=== PATIENT | male | born 1950 | race Caucasian/White ===

== ENCOUNTER 2021-02-17 21:20 | Emergency (ER) | payer MEDICARE, OTHER, SELFPAY ==
[2021-02-17 21:26] VITALS: BP 119/65; PULSE 80; RESP 18; TEMP 36.6; O2SAT 93
[2021-02-17 22:22] LABS: Prothrombin Time 10.8 SECONDS (10.1-12.7)
[2021-02-17 22:26] LABS: Add Manual Diff / Slide Review NO; Alanine Aminotransferase 30 IU/L (<50); Albumin 3.8 g/dL (3.5-5.0); Albumin Globulin Ratio 1.3 (1.0-2.8); Alkaline Phosphatase 66 U/L (38-126); Aspartate Aminotransferase 34 IU/L (17-59); BUN Creatinine Ratio 28.1 (6-22); Basophils Absolute Auto 100 /uL (0-100); Basophils Percent Auto 0.6 % (0-2); Bilirubin Total 0.4 mg/dL (0.2-1.3); Blood Urea Nitrogen 25 mg/dL (9-20); Calcium 9.8 mg/dL (8.4-10.2); Carbon Dioxide 33 mmol/L (22-32); Chloride 97 mmol/L (98-107); Eosinophils Absolute Auto 100 /uL (0-450); Eosinophils Percent Auto 1.3 % (2-4); Estimated Glomerular Filt Rate > 60.0 mL/min (>60); Glucose 166 mg/dL (80-110); HEMOLYSIS < 15 (0-50); Hematocrit 40.4 % (41-53); Hemoglobin 13.1 g/dL (13.5-17.5); Lipase 124 U/L (23-300); Lymphocytes Absolute Auto 500 /uL (1100-4500); Lymphocytes Percent Auto 4.9 % (25-40); Mean Corpuscular HGB Conc 32.4 % (30-36); Mean Corpuscular Hemoglobin 28.2 PG (26-34); Mean Corpuscular Volume 86.9 fL (80-100); Monocytes Absolute Auto 700 /uL (0-900); Monocytes Percent Auto 6.7 % (3-14); Neutrophils Absolute Auto 8600 /uL (1500-7000); Neutrophils Percent Auto 86.5 % (50-75); Platelet Count 268 X10^3/uL (150-400); Potassium 4.6 mmol/L (3.4-5.1); Red Blood Cell Count 4.65 X10^6/uL (4.5-5.9); Red Cell Distribution Width 16.4 % (11.6-14.8); Sodium 135 mmol/L (137-145); Total Protein 6.8 g/dL (6.3-8.2); White Blood Cell Count 9.9 X10^3/uL (4.5-11.0)
[2021-02-17 22:37] LABS: Troponin I < 0.012 ng/mL (0.01-0.034)
[2021-02-17 23:07] LABS: PTT Partial Thromboplastin Tim 29 SECONDS (26.4-36.2)
--- NOTE | 2021-02-18 01:56 | ED.RECABL ---
HPI - Recheck/Abnormal Lab/Rx General Chief Complaint: Recheck/Abnormal Lab/Rx Stated Complaint: throat ca, failure to thrive Time Seen by Provider: 02/18/21 01:54 Source: patient and family Mode of arrival: Wheelchair History of Present Illness HPI narrative: 71-year-old gentleman with a history of head and neck squamous cell cancer in the late for which he had max dose radiation therapy and surgical revision. He was cancer free for approximately 15 years recently had recurrent symptoms and for the last 3 years has been having throat pain, intermittent dizziness and nausea. He was treated with immune therapy for his recurrent cancer and from that developed bullous pemphigus. He was on high dose, up to 80 mg daily, of prednisone to treat this and is now weaning off the prednisone as do pick sent IM every 2 weeks seems to be helping. Over the last number of weeks he has been increasingly weak complaining of pain in the left side of his jaw and throat, worsening dizzy miss and lightheadedness. He has been seen by his ear nose and throat physician who referred him to the [facility] for additional scoping that took place yesterday. Apparently he and his did not feel like they had adequate time with the physician and is somewhat frustrated without recent interaction and both are significantly fatigued from the travel in the frustration. Patient is unable to swallow and uses feeding tube. He has his liquid nutrients delivered by [facility] and is supposed to have 7 ?meals? a day. He does frequently bland food rather than use the liquid nutrient. Over the last week he has been feeding himself less and allowing himself less water because he simply has not felt well. He reports that with the volume of food and then and equal volume of water he feels bloated. His notes that he will sleep for the vast majority of the day getting up only to take occasional Tylenol for pain and intermittently I feed himself via feeding tube. He continues to complain of pain on the left side of his face. He has successfully use Tylenol was recently given tramadol but was concerned that that would worsen his dermatologic condition and found that the 1st dose he took was not very effective. He describes no cough unless he has swallowed too much saliva or any liquids. No fevers no chills no diarrhea. No complaints of dysuria or flank pain. Related Data Home Medications Medication Instructions Recorded Confirmed atorvastatin [Lipitor] 20 mg PO Q DAY #0 04/01/17 04/05/18 levothyroxine [Synthroid] 125 mg PO Q DAY #0 04/01/17 04/05/18 Previous Rx's Medication Instructions Recorded 60cc syringe catheter tip #2 each 04/05/18 miscellaneous medical supply #1 each 04/05/18 food supplemt, lactose-reduced 5 each FEEDING TUBE .qd #150 dose 04/19/18 omeprazole magnesium 2.5 mg oral 20 mg PO BID #60 each 11/16/18 suspension,delayed release amoxicillin-pot clavulanate 1 tab PO BID #14 tab 02/18/21 [Augmentin XR] Allergies Allergy/AdvReac Type Severity Reaction Status Date / Time codeine [CODEINE] Allergy Unknown RASH Verified 11/16/18 13:13 Review of Systems Review of Systems Narrative: Remainder of complete review of systems is otherwise unremarkable except for that included in the HPI. Patient History Medical History (Updated 02/18/21 @ 04:37 by Mary Higgins MD) Dysphagia Feeding by G-tube Feeding tube dysfunction Head and neck cancer History of radiation to head and neck region Surgical History Status post radical dissection of neck Family History Mother Cancer Sister Cancer Social History marital status: household members: spouse caregiver/support person: Yes Exam Narrative Exam Narrative: General: Chronically ill-appearing but in no acute distress. HEENT: Hoarse voice secondary to his radiation treatment and head and neck cancer. Dry mucous membranes, normal sclera with reactive pupils. Has some minor swelling at the left angle of his jaw with a single submandibular lymph node that is tender to touch. Oral mucosa is dry with a large number of secretions as well. Overall poor dental hygiene but no obvious pointing abscess or fractured tooth Neck: Post radical neck dissection, well-healed Respiratory: Lungs are clear to auscultation, scattered occasional wheeze but no rales no rhonchi. Full and symmetrical air movement Cardiac: Regular rate and rhythm no murmurs no bruits Abdomen: Soft, nontender, good bowel tones, no flank pain Skin: Warm and dry, quite thin. He has multiple small areas of healing bowl eye and an area of excoriation around his feeding tube site that does not appear to be acutely infected Neurologic: Grossly neurologically intact with no obvious asymmetries or abnormalities aside from that related to the radical neck dissection Extremities: No trauma, well perfused Psych: Cooperative, poor overall insight Initial Vital Signs Initial Vital Signs: Vital Signs Temperature 97.8 F 02/17/21 21:26 Pulse Rate 80 02/17/21 21:26 Respiratory Rate 18 02/17/21 21:26 Blood Pressure 119/65 02/17/21 21:26 Pulse Oximetry 93 02/17/21 21:26 Course Orders Ordered: ED Orders 02/17/21 21:40 Complete Blood Count AUTO DIFF Stat Comprehensive Metabolic Panel Stat Lipase Stat Partial Thromboplastin Time Stat Prothrombin Time INR Stat Trop I [Troponin I] Stat 02/18/21 02:17 Urinalysis and Microscopic Stat Hydromorphone HCl (Hydromorphone 0.5 Mg Inj) 0.5 mg IV Q15MIN PRN PRN Reason: Pain, Last Admin: 02/18/21 03:07 Dose: 0.5 mg Documented by: CAMRON Discontinued Medications Hydrocortisone (Hydrocortisone 100 Mg/2 Ml Vial) 100 mg IV NOW ONE Stop: 02/18/21 03:02 Last Admin: 02/18/21 03:10 Dose: 100 mg Documented by: CAMRON Sodium Chloride (Normal Saline 0.9%) 1,000 mls @ 1,000 mls/hr IV BOLUS ONE Stop: 02/18/21 04:00 Last Admin: 02/18/21 03:09 Dose: 1,000 mls/hr Documented by: CAMRON Ceftriaxone Sodium/Dextrose (Rocephin) 1 gm in 50 mls @ 100 mls/hr IV NOW ONE Stop: 02/18/21 03:31 Last Infusion: 02/18/21 03:52 Dose: 0 mls/hr Documented by: Admin: 02/18/21 03:09 Dose: 100 mls/hr Documented by: CAMRON Vital Signs Vital signs: Vital Signs - 8 hr 02/17/21 21:26 Temperature 97.8 F Pulse Rate 80 Respiratory Rate 18 Blood Pressure 119/65 Pulse Oximetry 93 MDM - Recheck/Abnormal Lab/Rx Medical Records Attestation: I reviewed the patient's medical records. Lab Data Attestation: I reviewed the patient's lab results. Result diagrams: 02/17/21 21:40 02/17/21 21:40 Labs: Lab Results 02/17/21 02/17/21 02/17/21 Range/Units 21:40 21:40 21:40 WBC 9.9 (4.5-11.0) X10^3/uL RBC 4.65 (4.5-5.9) X10^6/uL Hgb 13.1 L (13.5-17.5) g/dL Hct 40.4 L (41-53) % MCV 86.9 (80-100) fL MCH 28.2 (26-34) PG MCHC 32.4 (30-36) % RDW 16.4 H (11.6-14.8) % Plt Count 268 (150-400) X10^3/uL Neut % (Auto) 86.5 H (50-75) % Lymph % (Auto) 4.9 L (25-40) % [place] % (Auto) 6.7 (3-14) % Eos % (Auto) 1.3 L (2-4) % Baso % (Auto) 0.6 (0-2) % Neut # (Auto) 8600 H (1893-7628) /uL Lymph # (Auto) 500 L (9424-1572) /uL [place] # (Auto) 700 (0-900) /uL Eos # (Auto) 100 (0-450) /uL Baso # (Auto) 100 (0-100) /uL PT 10.8 (10.1-12.7) SECONDS INR 1.0 (0.9-1.3) APTT 29 (26.4-36.2) SECONDS Sodium 135 L (137-145) mmol/L Potassium 4.6 (3.4-5.1) mmol/L Chloride 97 L (98-107) mmol/L Carbon Dioxide 33 H (22-32) mmol/L BUN 25 H (9-20) mg/dL Creatinine 0.89 (0.66-1.25) mg/dL Estimated GFR > 60.0 (>60) mL/min BUN/Creatinine Ratio 28.1 H (6-22) Glucose 166 H (80-110) mg/dL Calcium 9.8 (8.4-10.2) mg/dL Total Bilirubin 0.4 (0.2-1.3) mg/dL AST 34 (17-59) IU/L ALT 30 (<50) IU/L Alkaline Phosphatase 66 (38-126) U/L Troponin I (0.01-0.034) ng/mL Total Protein 6.8 (6.3-8.2) g/dL Albumin 3.8 (3.5-5.0) g/dL Globulin 3.0 (1.7-4.1) g/dL Albumin/Globulin Ratio 1.3 (1.0-2.8) Lipase 124 (23-300) U/L Urine Color Urine Appearance Urine pH (4.5-8.0) Ur Specific [place] (1.000-1.035) Urine Protein (Negative) Urine Glucose (UA) (Negative) g/dL Urine Ketones (NEGATIVE) Urine Occult Blood (Negative) Urine Nitrate (Negative) Urine Bilirubin (NEGATIVE) Urine Urobilinogen (0.2) E.U./dL Ur Leukocyte Esterase (NEGATIVE) Urine RBC (0-5/HPF) Urine WBC (0-5/HPF) Urine Bacteria (None) Ur Culture Indicated? 02/17/21 02/18/21 Range/Units 21:40 02:17 WBC (4.5-11.0) X10^3/uL RBC (4.5-5.9) X10^6/uL Hgb (13.5-17.5) g/dL Hct (41-53) % MCV (80-100) fL MCH (26-34) PG MCHC (30-36) % RDW (11.6-14.8) % Plt Count (150-400) X10^3/uL Neut % (Auto) (50-75) % Lymph % (Auto) (25-40) % [place] % (Auto) (3-14) % Eos % (Auto) (2-4) % Baso % (Auto) (0-2) % Neut # (Auto) (6074-5607) /uL Lymph # (Auto) (0799-9423) /uL [place] # (Auto) (0-900) /uL Eos # (Auto) (0-450) /uL Baso # (Auto) (0-100) /uL PT (10.1-12.7) SECONDS INR (0.9-1.3) APTT (26.4-36.2) SECONDS Sodium (137-145) mmol/L Potassium (3.4-5.1) mmol/L Chloride (98-107) mmol/L Carbon Dioxide (22-32) mmol/L BUN (9-20) mg/dL Creatinine (0.66-1.25) mg/dL Estimated GFR (>60) mL/min BUN/Creatinine Ratio (6-22) Glucose (80-110) mg/dL Calcium (8.4-10.2) mg/dL Total Bilirubin (0.2-1.3) mg/dL AST (17-59) IU/L ALT (<50) IU/L Alkaline Phosphatase (38-126) U/L Troponin I < 0.012 (0.01-0.034) ng/mL Total Protein (6.3-8.2) g/dL Albumin (3.5-5.0) g/dL Globulin (1.7-4.1) g/dL Albumin/Globulin Ratio (1.0-2.8) Lipase (23-300) U/L Urine Color Yellow Urine Appearance Clear Urine pH 6.5 (4.5-8.0) Ur Specific [place] 1.025 (1.000-1.035) Urine Protein Trace H (Negative) Urine Glucose (UA) 1+ H (Negative) g/dL Urine Ketones Negative (NEGATIVE) Urine Occult Blood Negative (Negative) Urine Nitrate Negative (Negative) Urine Bilirubin Negative (NEGATIVE) Urine Urobilinogen 0.2 (0.2) E.U./dL Ur Leukocyte Esterase Negative (NEGATIVE) Urine RBC None seen (0-5/HPF) Urine WBC None seen (0-5/HPF) Urine Bacteria None seen (None) Ur Culture Indicated? Cult not indicated MDM Narrative Medical decision making narrative: 71-year-old gentleman with complex medical history with increasing left jaw pain in the setting of his head neck cancer, increasing weakness and fatigue so he is not using appropriate volumes of liquid nutrition normal water. Recent long day at the [facility] with frustrating interactions with physicians and he in his finally at [facility] end in trying to find answers and help. Does seem to have a number of issues with the possibility of a dental infection causing the left-sided jaw pain concurrent with his cancers. He did have head neck and chest CTs at the [facility] yesterday as well as some type of ENT scoping down his throat all of which were reportedly negative for recurrent disease. I am concerned that this needs to be further clarified have encouraged him to follow-up with Dr. Ospina. In the meantime, he does appear to have thrush and is only intermittently using the nystatin swish and swallow he has available to him. I am concerned that he does have a dental infection and will continue his antibiotics augmented by a dose of ceftriaxone in the emergency department. He clearly is dehydrated and given 2 L of fluid feeling significantly better after that. Given his chronic prednisone use he is also given a stress dose of hydrocortisone. Regarding pain control we had a long discussion regarding options and at this point he is willing to consider trying narcotics. He found that the tramadol was not effective and he was concerned with dermatologic side effects given his already complex bullous pemphigoid. Half a dose of Dilaudid dramatically helped relieve his overall pain. We talked about the use of Percocet and Tylenol in combination. At this time there is no evidence of sepsis, with rehydration and hydrocortisone he he is feeling significantly better. I believe he is safe for discharge home and he will follow-up with his oncology and ENT providers. Discharge Plan Departure Patient Disposition: Home Clinical Impression: Acute dehydration, Dental infection, Candidiasis of mouth, Current chronic use of systemic steroids, Feeding by G-tube Instructions: DI for Dehydration -- Adult Activity Restrictions/Additional Instructions: thank you for coming in today. It sounds like you have had a very frustrating experience recently, all made more difficult when you are hurting and not feeling well. there are a number of issues that we discussed 1. You are dehydrated. You need to be doing tube feeds and water multiple times a day even when your tired are not feeling well. If you do not fuel your body appropriately and make sure you are well hydrated, you are going to be tired and lethargic. 2. I am concerned that the pain that you have at the angle of the jaw on the left side with the single swollen lymph node is because of a dental infection. I have given you a dose of ceftriaxone in the emergency department and will prescribe an additional 7 days of Augmentin. This pain may be cancer related as well. You have had an evaluation and do not feel that you understood the results completely. I would recommend that you follow-up with Dr. Ospina so that he can make sure you have all of the information that you need and that you are improving 3. With your chronic steroids I believe part of your mouth and throat pain is due to thrush/yeast in the mouth. Please continue to use the nystatin swish and swallow that you have available. Another thing that can happen with chronic steroid use is adrenal suppression. I have given you a stress dose of IV hydrocortisone in the emergency department to help compensate for this with your acute issues today 4. For pain control, I fully appreciate that you want to avoid the side effects( of narcotics addiction, constipation, feeling drugged) however pain severe enough that your unwilling to get up out of bed can be more appropriately treated so you can fully participate in your life. For medium pain use 2 Tylenol, for severe pain use 1 Percocet and 1 Tylenol together. Any time you do use of Percocet you need to add more water to your daily routine to avoid constipation I hope that you are feeling better soon Prescriptions: New amoxicillin-pot clavulanate [Augmentin XR] 1,000-62.5 mg tablet extended release 12 hr 1 tab PO BID Qty: 14 RF: 0 No Action atorvastatin [Lipitor] 20 mg Tablet 20 mg PO Q DAY Qty: 0 RF: 0 levothyroxine [Synthroid] 112 mcg Tablet 125 mg PO Q DAY Qty: 0 RF: 0 food supplemt, lactose-reduced [Ensure High Protein] liquid 5 each Feeding Tube .qd Qty: 150 RF: 3 omeprazole magnesium 2.5 mg susp,delayed release for recon 20 mg PO BID Qty: 60 RF: 6 (DME) 60cc syringe catheter tip Qty: 2 RF: 5 (DME) miscellaneous medical supply [Feeding Tube Attachment Device] misc See Dose Instructions .ROUTE .MEDSUPPLY Qty: 1 RF: 0 Referrals: Jonelle Camara MD [Primary Care Provider] -
[2021-02-18 02:19] LABS: Bacteria Urine None Seen; RBC Urine None Seen (0-5/HPF); WBC Urine None Seen (0-5/HPF)
[2021-02-18 02:25] LABS: Appearance Urine UA CLEAR; Bilirubin Urine UA NEGATIVE (NEGATIVE); Color Urine UA YELLOW; Glucose Urine UA 1+ g/dL (Negative); Ketones Urine UA NEGATIVE (NEGATIVE); Leukocyte Esterase Urine UA NEGATIVE (NEGATIVE); Nitrite Urine UA NEGATIVE (Negative); Occult Blood Urine UA NEGATIVE (Negative); Protein Urine UA TRACE (Negative); Specific Gravity Urine UA 1.025 (1.000-1.035); Urobilinogen Urine UA 0.2 E.U./dL (0.2); pH Urine UA 6.5 (4.5-8.0)
[2021-02-18 02:35] LABS: Culture Indicated Urine Cult Not Indicated
[2021-02-18] MEDS: HYDROMORPHONE 0.5 MG INJ IV (03:07)
[2021-02-18] MEDS: CEFTRIAXONE 1 GM/50 ML FROZ.PIGGY IV (03:09)
[2021-02-18] MEDS: SODIUM CHLORIDE 0.9% 1,000 ML 1000 ML IV (03:09)
[2021-02-18] MEDS: HYDROCORTISONE 100 MG/2 ML VIAL IV (03:10)
[2021-02-18 05:18] VITALS: BP 133/82; PULSE 80; RESP 18; O2SAT 93
== END 2021-02-18 05:07 | disposition home or self-care (01) ==
PROVIDERS: Emergency Provider Emergency Medicine; Family Provider Family Medicine; PCP Family Medicine
DX: E86.0 Dehydration (principal); K04.7 Periapical abscess without sinus; B37.0 Candidal stomatitis; Z79.52 Long term (current) use of systemic steroids; Z93.1 Gastrostomy status; R42 Dizziness and giddiness; R11.0 Nausea
CPT/HCPCS: 80053; 81001; 83690; 84484; 85025; 85610; 85730; 96361; 96365; 96375; 99283; 99284; J1170; J1720

== ENCOUNTER 2021-04-13 20:50 | Emergency (ER) | payer MEDICARE, OTHER, SELFPAY ==
[2021-04-13] VITALS (8 sets, daily range): BP systolic 139; BP diastolic 69; PULSE 80–95; RESP 14; TEMP 36.4; O2SAT 94–98
--- NOTE | 2021-04-13 21:08 | PC.NURSE ---
very anxious, asking staff to witness pt's legal papers. Informed that we would not act as witnesses as we are part of his care team.
--- NOTE | 2021-04-13 22:25 | DI.CT.S_ITS ---
PROCEDURE: CT SOFT TISSUE NECK W CON INDICATIONS: neck and throat swelling TECHNIQUE: After the administration of intravenous contrast, 3.0 mm axial sections acquired from the sella to the aortic arch. Additional oblique axial 3.0 mm sections acquired through the pharynx. 3 mm thick coronal and sagittal reformats were generated. For radiation dose reduction, the following was used: automated exposure control. COMPARISON: [place], [place], PET/CT SKULL BASE TO MID THIGH, 06/25/2016, 8:35. FINDINGS: Image quality: Excellent. Lymph nodes: No enlarged lymph nodes seen throughout the neck. Vessels: Visualized vasculature appears patent. Neck spaces: Right neck dissection is present. There is asymmetric thickening within the left lateral pharyngeal wall extending inferiorly towards the tonsillar region. No enhancing fluid collection is identified. Glands: Thyroid gland is minimally visualized. Miscellaneous: Visualized brain and orbits appear normal. Lung apices demonstrate patchy areas of opacity bilaterally. In addition, there is a clustered partially visualized focus of nodularity within the left upper lobe seen on series 2 images 72-80. The largest measures approximately 6 mm on series 2, image 80, although an the visualized. Superficial soft tissues appear normal. Bones: In the interval since the prior exam in 2015, there has been a heterogeneous appearance of the bones within the visualized upper cervical spine as well as portions of the mandible. Visualized sinuses and mastoids appear unremarkable. IMPRESSION: 1. Right neck dissection. 2. Ill-defined asymmetric thickening within the left lateral pharyngeal wall as above. No focal fluid collection. This could be telephone services sales representative of phlegmon/abscess or potentially a neoplasm. Recommend correlation patient's symptoms and direct visualization of this region. Additionally, if prior exams are available at another facility, it is recommended that they be obtained. They will be compared and addendum issued. 3. Heterogeneous appearance of the upper cervical spine as well as portions of the mandible. This could be secondary to prior treatment change. However, osseous metastatic disease cannot be definitively excluded. Further evaluation with MRI cervical spine is recommended as clinically indicated. The The above findings are concordant with preliminary report. Dictated by: Lizzeth Scott M.D. on 04/14/2021 at 8:41 Approved by: Lizzeth Scott M.D. on 04/14/2021 at 8:57
[2021-04-13 22:33] LABS: Add Manual Diff / Slide Review NO; Basophils Absolute Auto 100 /uL (0-100); Basophils Percent Auto 0.5 % (0-2); Eosinophils Absolute Auto 300 /uL (0-450); Eosinophils Percent Auto 2.1 % (2-4); Hematocrit 37.8 % (41-53); Hemoglobin 12.5 g/dL (13.5-17.5); Lymphocytes Absolute Auto 500 /uL (1100-4500); Lymphocytes Percent Auto 3.7 % (25-40); Mean Corpuscular HGB Conc 33.1 % (30-36); Mean Corpuscular Hemoglobin 28.3 PG (26-34); Mean Corpuscular Volume 85.6 fL (80-100); Monocytes Absolute Auto 1100 /uL (0-900); Monocytes Percent Auto 8.2 % (3-14); Neutrophils Absolute Auto 11500 /uL (1500-7000); Neutrophils Percent Auto 85.5 % (50-75); Platelet Count 264 X10^3/uL (150-400); Red Blood Cell Count 4.42 X10^6/uL (4.5-5.9); Red Cell Distribution Width 16.6 % (11.6-14.8); White Blood Cell Count 13.5 X10^3/uL (4.5-11.0)
[2021-04-13] MEDS: KETOROLAC 30 MG/ML VIAL 15 MG IV (22:34)
[2021-04-13] MEDS: DEXAMETHASONE 10 MG/ML VIAL IV (22:34)
[2021-04-13 22:38] LABS: Alanine Aminotransferase 34 IU/L (<50); Albumin 3.9 g/dL (3.5-5.0); Albumin Globulin Ratio 1.3 (1.0-2.8); Alkaline Phosphatase 78 U/L (38-126); Aspartate Aminotransferase 39 IU/L (17-59); BUN Creatinine Ratio 26.2 (6-22); Bilirubin Total 0.6 mg/dL (0.2-1.3); Blood Urea Nitrogen 22 mg/dL (9-20); Calcium 9.1 mg/dL (8.4-10.2); Carbon Dioxide 29 mmol/L (22-32); Chloride 95 mmol/L (98-107); Estimated Glomerular Filt Rate > 60.0 mL/min (>60); Globulin 2.9 g/dL (1.7-4.1); Glucose 263 mg/dL (80-110); Potassium 4.7 mmol/L (3.4-5.1); Sodium 132 mmol/L (137-145); Total Protein 6.8 g/dL (6.3-8.2)
[2021-04-13 22:40] LABS: HEMOLYSIS 55 (0-50)
[2021-04-14 00:04] VITALS: PULSE 90; O2SAT 98
[2021-04-14 00:30] VITALS: PULSE 87; O2SAT 96
[2021-04-14 01:02] VITALS: PULSE 95; O2SAT 93
--- NOTE | 2021-04-14 01:31 | ED.SOB ---
HPI - SOB/Dyspnea General Chief Complaint: Shortness of Breath/Dyspnea Stated Complaint: trouble breathing Time Seen by Provider: 04/13/21 20:57 Source: patient and family Mode of arrival: Ambulatory Limitations: no limitations History of Present Illness HPI Narrative: 71M former smoker with history of head and neck cancer feeds by a G-tube and has been told he is not a candidate for surgical intervention or radiation given difficult nature of his disease. He presents today stating that he has some increased fullness in his throat after starting fentanyl patches a few days ago. He denies any difficulty breathing, rash, hives or other. Patient is awake, alert oriented, handling his secretions and has been encouraged not to talk by multiple doctors including his family. Is unclear whether he is on hospice or palliative care at this point in time. Related Data Home Medications Medication Instructions Recorded Confirmed atorvastatin 20 mg tablet (Lipitor) 20 mg PO Q DAY #0 04/01/17 04/05/18 levothyroxine 112 mcg tablet 125 mg PO Q DAY #0 04/01/17 04/05/18 (Synthroid) Previous Rx's Medication Instructions Recorded 60cc syringe catheter tip #2 each 04/05/18 miscellaneous medical supply #1 each 04/05/18 (Feeding Tube Attachment Device) food supplemt, lactose-reduced 5 each FEEDING TUBE .qd #150 dose 04/19/18 (Ensure High Protein) omeprazole magnesium 2.5 mg oral 20 mg PO BID #60 each 11/16/18 suspension,delayed release ketorolac 10 mg tablet 10 mg PO Q6H PRN #14 tab 04/14/21 Allergies Allergy/AdvReac Type Severity Reaction Status Date / Time codeine [CODEINE] Allergy Unknown RASH Verified 04/13/21 20:56 Review of Systems Review of Systems Narrative: GENERAL: Denies chills, fatigue, malaise, fever, sweats. HEENT: See HPI RESPIRATORY: Denies dyspnea, cough, wheezing, hemoptysis, sputum. CARDIOVASCULAR: Denies chest pain, palpitations, orthopnea, edema, GASTROINTESTINAL: Denies nausea, vomiting, abdominal pain, diarrhea, constipation, melena. : Denies dysuria, frequency, incontinence, hematuria, urinary retention. MUSCULOSKELETAL: denies weakness, joint pain, or bony pain SKIN: Denies rash, skin lesions, or other NEUROLOGIC: Denies weakness, headache, numbness, change in speech, confusion, seizures, incoordination. PSYCHIATRIC: No concerning psychosocial issues. 12 point review of systems is negative except for those stated above Patient History Medical History (Updated 04/14/21 @ 01:59 by Minh Nair DO) Dysphagia Feeding by G-tube Feeding tube dysfunction Head and neck cancer History of radiation to head and neck region Surgical History Status post radical dissection of neck Family History Mother Cancer Sister Cancer Social History marital status: household members: spouse caregiver/support person: Yes Smoking Status: Former smoker Smoking Status: Former smoker alcohol intake frequency: 0-2 drinks per day Substance Use Type: does not use Exam Narrative Exam Narrative: GENERAL: [71] year old patient appears stated age. Chronically ill but in no obvious acute distress HEAD: Atraumatic. Normocephalic. EYES: Pupils equal round and reactive. Extraocular motions intact. No scleral icterus. No injection or drainage. ENT: Nose without bleeding, purulent drainage. Throat without erythema, tonsillar hypertrophy or exudate. Airway patent. NECK: Postsurgical changes evident, no external evidence of edema, discoloration, erythema, warmth or tenderness CARDIOVASCULAR: Regular rate and rhythm without murmurs, gallops, or rubs. RESPIRATORY: Clear to auscultation. Breath sounds equal bilaterally. No wheezes, rales, or rhonchi. GASTROINTESTINAL: Abdomen soft, non-tender, nondistended. EXTREMITIES: No edema or joint tenderness. BACK: Nontender without deformity or crepitance. No flank tenderness. NEURO: AOx3. SKIN: No rash or erythema of visible areas Initial Vital Signs Initial Vital Signs: Vital Signs Temperature 97.6 F 04/13/21 20:51 Pulse Rate 93 H 04/13/21 20:51 Respiratory Rate 14 04/13/21 20:51 Blood Pressure 139/69 04/13/21 20:51 Pulse Oximetry 94 04/13/21 20:51 Course Orders Ordered: ED Orders 04/13/21 21:19 RT Consult Eval and Treat NOW 04/13/21 21:45 Complete Blood Count AUTO DIFF Stat Comprehensive Metabolic Panel Stat 04/13/21 22:25 CT soft tissue neck w con Stat 04/14/21 00:45 COVID19 - ADMIT (DRIVE TESTER swab/PCR) Stat Discontinued Medications Dexamethasone (Dexamethasone 10 Mg/Ml Vial) 10 mg IV NOW ONE Stop: 04/13/21 22:26 Last Admin: 04/13/21 22:34 Dose: 10 mg Documented by: KHANH Ketorolac Tromethamine (Ketorolac 30 Mg/Ml Vial) 15 mg IV NOW ONE Stop: 04/13/21 22:26 Last Admin: 04/13/21 22:34 Dose: 15 mg Documented by: KHANH Vital Signs Vital signs: Vital Signs - 8 hr 04/13/21 20:51 04/13/21 21:00 04/13/21 21:30 Temperature 97.6 F Pulse Rate 93 H 95 H 90 Respiratory Rate 14 Blood Pressure 139/69 Pulse Oximetry 94 96 04/13/21 21:49 04/13/21 22:00 04/13/21 22:30 Temperature Pulse Rate 82 80 Respiratory Rate Blood Pressure Pulse Oximetry 98 97 98 04/13/21 23:00 04/13/21 23:30 04/14/21 00:04 Temperature Pulse Rate 88 88 90 Respiratory Rate Blood Pressure Pulse Oximetry 98 98 98 04/14/21 00:30 04/14/21 01:02 Temperature Pulse Rate 87 95 H Respiratory Rate Blood Pressure Pulse Oximetry 96 93 MDM - SOB/Dyspnea Lab Data Result diagrams: 04/13/21 21:45 04/13/21 21:45 Labs: Lab Results 04/13/21 04/13/21 Range/Units 21:45 21:45 WBC 13.5 H (4.5-11.0) X10^3/uL RBC 4.42 L (4.5-5.9) X10^6/uL Hgb 12.5 L (13.5-17.5) g/dL Hct 37.8 L (41-53) % MCV 85.6 (80-100) fL MCH 28.3 (26-34) PG MCHC 33.1 (30-36) % RDW 16.6 H (11.6-14.8) % Plt Count 264 (150-400) X10^3/uL Neut % (Auto) 85.5 H (50-75) % Lymph % (Auto) 3.7 L (25-40) % [place] % (Auto) 8.2 (3-14) % Eos % (Auto) 2.1 (2-4) % Baso % (Auto) 0.5 (0-2) % Neut # (Auto) 62836 H (5000-0747) /uL Lymph # (Auto) 500 L (4213-6092) /uL [place] # (Auto) 1100 H (0-900) /uL Eos # (Auto) 300 (0-450) /uL Baso # (Auto) 100 (0-100) /uL Sodium 132 L (137-145) mmol/L Potassium 4.7 (3.4-5.1) mmol/L Chloride 95 L (98-107) mmol/L Carbon Dioxide 29 (22-32) mmol/L BUN 22 H (9-20) mg/dL Creatinine 0.84 (0.66-1.25) mg/dL Estimated GFR > 60.0 (>60) mL/min BUN/Creatinine Ratio 26.2 H (6-22) Glucose 263 H (80-110) mg/dL Calcium 9.1 (8.4-10.2) mg/dL Total Bilirubin 0.6 (0.2-1.3) mg/dL AST 39 (17-59) IU/L ALT 34 (<50) IU/L Alkaline Phosphatase 78 (38-126) U/L Total Protein 6.8 (6.3-8.2) g/dL Albumin 3.9 (3.5-5.0) g/dL Globulin 2.9 (1.7-4.1) g/dL Albumin/Globulin Ratio 1.3 (1.0-2.8) Imaging Data CT Neck: Radiologist's Impression: Ill-defined heterogeneous soft tissue thickening left lateral pharyngeal wall 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 MDM Narrative Medical decision making narrative: Patient feeling tremendous improvement after the above-stated therapies. He now has no pain is in no respiratory distress and is not having any trouble swallowing. Imaging seems to be very consistent with what his describes had been recently found. He has no signs of sepsis, respiratory compromise. There is some question as to whether not the fentanyl patch may have been playing a role, however he had been using it for multiple days in his symptoms only started today. A question what role dehydration and even dry throat may have played and how he feels given his response to the above-stated therapies. I spent a significant time at the bedside discussing return precautions with patient and . They very much wants to go home and understand what would prompt a return Discharge Plan Departure Patient Disposition: Home Clinical Impression: Dysphagia Activity Restrictions/Additional Instructions: *You have been diagnosed with [throat pain and difficulty swallowing ] *What to do: *As we discussed pleae STOP using the Fentanyl patch at least until seen by your palliative care nurse. Please continue to take your regular medications as directed. Also, please consider the use of humidified air or oxygen [x ] New medication prescriptions sent to your pharmacy: [[facility] [place] ] I did discuss with [facility] and they verified that the Ketorolac can be crushed [ ] New medication written as a paper prescription [ ] No new medications given *Please follow up with your primary care provider in 2-3 days, call for an appointment. Let them know you were seen in the Emergency Department and that we ask that you be seen in follow up. We will electronically transmit a record of today's note if your PCP is in our system *If you do not have a primary care provider please contact the [facility] Resource line at [phone]. They will ask some questions about your medical history and help get you set up with a doctor in the community. *Return to Emergency Department if you should have any new, worsening or concerning symptoms, such as [fever greater than 101 F, shaking chills, worsening pain, persistent vomiting or other bothersome symptoms] Prescriptions: New ketorolac 10 mg tablet 10 mg PO Q6H PRN (Reason: pain) Qty: 14 RF: 0 No Action atorvastatin [Lipitor] 20 mg Tablet 20 mg PO Q DAY Qty: 0 RF: 0 levothyroxine [Synthroid] 112 mcg Tablet 125 mg PO Q DAY Qty: 0 RF: 0 food supplemt, lactose-reduced [Ensure High Protein] liquid 5 each Feeding Tube .qd Qty: 150 RF: 3 omeprazole magnesium 2.5 mg susp,delayed release for recon 20 mg PO BID Qty: 60 RF: 6 (DME) 60cc syringe catheter tip Qty: 2 RF: 5 (DME) miscellaneous medical supply [Feeding Tube Attachment Device] misc See Dose Instructions .ROUTE .MEDSUPPLY Qty: 1 RF: 0 Referrals: Jonelle Camara MD [Primary Care Provider] -
[2021-04-14 01:57] VITALS: BP 159/85; PULSE 88; RESP 20; O2SAT 95
== END 2021-04-14 02:05 | disposition home or self-care (01) ==
PROVIDERS: Emergency Provider Emergency Medicine; Family Provider Family Medicine; PCP Family Medicine
DX: R13.10 Dysphagia, unspecified (principal); Z93.1 Gastrostomy status; Z85.89 Personal history of malignant neoplasm of other organs and systems
CPT/HCPCS: 36415; 70491; 80053; 85025; 96374; 96375; 99284; 99285; J1100; J1885; Q9967